=== PATIENT | male | born 1975 | race African-American/Black ===

== ENCOUNTER 2017-08-04 09:21 | Emergency (ER) | payer OTHER ==
[~2017-08-04] VITALS: Ht 170.2 cm; Wt 78.9 kg
[2017-08-04] MEDS ORDERED: FEBU40TA PO (09:32)
[2017-08-04] MEDS ORDERED: COLC1CAP PO (09:32)
[2017-08-04 10:34] VITALS: BP 133/69
[2017-08-04] MEDS ORDERED: BACT800T5 PO ×2 (10:52→11:04)
== END 2017-08-04 11:05 | disposition home or self-care (01) ==
LOC: M ED 09:21
DX: L72.3 Sebaceous cyst (principal); I10 Essential (primary) hypertension; M10.9 Gout, unspecified; F43.10 Post-traumatic stress disorder, unspecified; F17.210 Nicotine dependence, cigarettes, uncomplicated; Z79.899 Other long term (current) drug therapy

== ENCOUNTER → 2018-11-25 | Outpatient (CLI) | payer OTHER ==
[~2018-11-25] MED LIST: BACT800T5 PO; COLC1CAP PO; FEBU40TA PO
--- NOTE | 2018-11-28 07:09 | SLEEPCENT ---
DATE OF PROCEDURE: 11/25/2018 ORDERED BY: Martina Mosher. Nocturnal polysomnography was performed for evaluation of sleep physiology in this patient with excessive somnolence and snoring with nonrestorative sleep. 7 hours and 55 minutes of data were reviewed. There were 378 minutes of sleep identified. Sleep latency was prolonged at 60 minutes. REM latency was normal at 77 minutes. Sleep architecture was fair with five REM cycles. Overall sleep efficiency 80.4%. The electrocardiogram showed a sinus rhythm with an average heart rate of 58 beats per minute. EEG showed normal waveforms for awake and sleep. There was 27 respiratory events identified of 10 seconds in duration or greater for an apnea-hypopnea index of 5.1. The events were primarily obstructive not postural nor were they related to sleep stage. Arousals from respiratory events occurred 6.5 times per hour when arousals from snoring were included and oxygen desaturations were seen in the upper 80s. There was also some significant limb activity with four trains of 30 events and limb movement arousal index of 9.7. IMPRESSION: 1. Obstructive sleep apnea syndrome (G47.33). Apnea-hypopnea index 5.1. 2. Periodic limb movement disorder (G47.61). Limb movement arousal index 9.7. RECOMMENDATIONS: The patient should be encouraged to return to the sleep disorder center for pressure therapy. In the interim, alcohol and sedative avoidance should be practiced and caution exercised during the operation of motor vehicles. Pending response to pressure therapy, interventions to reduce the frequency arousals from limb activity may also be helpful.
== END ==
LOC: M SLEEP 20:00
PROVIDERS: ATTEND Nurse Practitioner Adult Health
DX: G47.33 Obstructive sleep apnea (adult) (pediatric) (principal); G47.61 Periodic limb movement disorder

== ENCOUNTER → 2019-01-02 | Outpatient (CLI) | payer OTHER ==
--- NOTE | 2019-01-04 12:27 | SLEEPCENT ---
DATE OF STUDY: 01/02/2019 ORDERED BY: Martina Mosher Nocturnal polysomnography was performed for the titration of pressure therapy in this patient with obstructive sleep apnea syndrome. For testing, a [employer]Med soft edge nasal mask of standard size was used and 4 cm of water pressure were applied to the circuit and the lights were extinguished. 7 hours 37 minutes of data were reviewed. There were 380 minutes of sleep identified. Sleep latency was prolonged at 42 minutes. Rapid eye movement (REM) latency was normal at 96 minutes. Sleep architecture was fairly good with 2 REM cycles. Overall sleep efficiency was 84%. The patient's electrocardiogram showed a sinus rhythm with an average heart rate of 56 beats per minute. Electroencephalogram (EEG) showed normal waveforms for awake and sleep. Respiratory events were fully palliated with C-PAP at a pressure of +7 and remaining measures of sleep physiology were normal. IMPRESSION: Obstructive sleep apnea syndrome (G47.33). RECOMMENDATION: Nightly use of pressure therapy at 7 cm of water.
== END ==
LOC: M SLEEP 22:44
PROVIDERS: ATTEND Nurse Practitioner Adult Health
DX: G47.33 Obstructive sleep apnea (adult) (pediatric) (principal)